=== PATIENT | female | born 1985 | race Caucasian/White ===

== ENCOUNTER 2021-02-04 07:42 | Inpatient (IN) | payer OTHER ==
[2021-02-04] MEDS ORDERED: Oxytocin/Normal Saline 30 UNIT/500 ML BAG IV ONE (07:50)
[2021-02-04] MEDS ORDERED: Oxytocin/Normal Saline 30 UNIT/500 ML BAG IV SCH ×2 (08:00)
[2021-02-04] MEDS ORDERED: ePHEDrine 50 MG/ML SDV IVPUSH PRN (08:00)
[2021-02-04] MEDS ORDERED: Acetaminophen 325 MG Tab PO PRN ×2 (08:00)
[2021-02-04] MEDS ORDERED: Misoprostol 400 MCG (4 X 100 MCG TAB) RECTAL PRN (08:00)
[2021-02-04] MEDS ORDERED: Ondansetron 4 MG/2 ML SDV IVPUSH PRN ×2 (08:00)
[2021-02-04] MEDS ORDERED: Tranexamic Acid 1,000 MG in Sodium Chloride 0.9% 100 ML IV PRN (08:00)
[2021-02-04] MEDS ORDERED: Misoprostol 50 MCG (1/2 of 100 MCG) Tab VAG PRN ×2 (08:00→13:15)
[2021-02-04] MEDS ORDERED: Promethazine 25 MG/ML SDV IM PRN (08:00)
[2021-02-04] MEDS ORDERED: Lidocaine 1% 30 ML SDV INJECT PRN (08:00)
[2021-02-04] MEDS ORDERED: Lactated Ringers 1,000 ML IV ONE (08:00)
[2021-02-04] MEDS ORDERED: Methylergonovine 0.2 MG/1 ML Amp IM PRN (08:00)
[2021-02-04] MEDS ORDERED: Naloxone 2 MG/2 ML Syringe IVPUSH PRN (08:00)
[2021-02-04] MEDS ORDERED: Sodium Chloride 0.9% 10 ML Syringe FLUSH PRN (08:00)
[2021-02-04] MEDS ORDERED: Carboprost Tromethamine 250 MCG/1 ML Amp IM PRN (08:00)
[2021-02-04] MEDS ORDERED: Lactated Ringers 1,000 ML IV SCH (14:20)
[2021-02-04] MEDS ORDERED: hydrOXYzine HCl 25 MG Tab PO PRN (15:40)
[2021-02-04] MEDS: VALACYCLOVIR 500 MG PO SCH (21:06)
[2021-02-05] MEDS: Lactated Ringers 1,000 ML IV SCH ×3 (00:50→19:50)
[2021-02-05] MEDS: Levothyroxine 88 MCG Tab PO SCH (06:25)
--- NOTE | 2021-02-05 09:46 | PN ---
DATE: 02/04/2021 SUBJECTIVE: A 35-year-old 1, para 0, currently at 39-3/7 weeks' gestation, being induced for advanced maternal age and an IVF , had 1 dose of Cytotec 50 mcg approximately 12 hours ago and unfortunately developed tachy systole of the uterus and was having tripling of her contractions and is still smita about every minute and a half to 2 minutes on the monitor, although she only reports some of that as strong as menstrual cramps. Despite rest, giving her a liter of IV fluids and a dose of Vistaril, and letting her sit in the tub, they have not spaced out sufficiently to continue with repeat doses of Cytotec at this time, and low doses of Pitocin are being considered. OBJECTIVE: Vital signs have remained stable. She is afebrile and non- hypertensive. heart tones are currently tracing 145 beats per minute. Moderate rdgb-[id number] variability. Accelerations are noted, no decelerations. [place] shows contractions every minute and a half with occasional pauses. PROCEDURE NOTE: Discussed with the patient and her use of a Saenz bulb catheter to help with cervical dilatation. The patient was properly prepared and laid in dorsal lithotomy position in the [facility]. A speculum was placed and the cervix cleaned with Betadine. A Saenz catheter was then introduced through the cervix using a ring forceps and then the Saenz bulb inflated with 30 mL of sterile saline and taped to the patient's leg to provide some traction. The procedure was performed without complication, no bleeding, no artificial rupture of membranes, and the baby has tolerated the procedure well. ASSESSMENT: 1. A 39-3/7 weeks' gestation. 2. 1, para 0. 3. resulting from intrauterine fertilization. 4. Advanced maternal age. 5. Maternal history of coronavirus disease infection. 6. Maternal history of herpes genitalis, currently on Valtrex prophylaxis and does not have any active lesions. PLAN: Continue to apply some traction to the Saenz bulb and hopefully get her to at least 2 to 3 cm dilated with that. We will also likely use low-dose Pitocin for further cervical ripening so that we could proceed with induction efforts and hopefully get her delivered vaginally. The patient does understand that delivery by section may become necessary if she or the baby start to have any compromising factors. As long as the bag of water is intact and the patient is doing well, there would be the potential to send her home undelivered, but that does have some risk given her age and IVF status. Her questions were answered, and hopefully, she will get some rest at this time. [facility] /[id number] ALEX
[2021-02-05] MEDS: VALACYCLOVIR 500 MG PO SCH ×2 (10:18→20:58)
--- NOTE | 2021-02-05 10:57 | PN ---
DATE: 02/05/2021 Subjective: Induction of labor is progressing. Pitocin rate at 8. AROM performed. She is feeling more pressure in the pelvic region and contractions are increasing in intensity. She is comfortable. Objective: VSS, afebrile General: Alert, no acute distress FHT: Category 1, baseline at 140s, accelerations present, decelerations absent, moderate variability TOCO: Irregular contractions every 2.5-3 minutes Procedures performed: AROM Clear fluid, no mec staining, was visualized. Approximately 200 mL Assessment and Plan: Patient is a 35 year old female 39 5/7 weeks gestation presenting for induction of labor. Continue increasing pitocin drip per protocol Will recheck cervical exam in 4 hours or sooner if indicated Continue current cares KD Duran 1331 MODL /[id number] Patient seen and examined. Procedure performed under my direct supervision. Agree with note as written on my behalf by YVONNE Duran. -[facility] 02/12/2021 0751. ALEX
[2021-02-05] MEDS ORDERED: Nalbuphine 10 MG/1 ML Vial IM ONE ×2 (19:21→23:11)
[2021-02-05] MEDS ORDERED: Water For Injection, Sterile 20 ML ONE (19:44)
[2021-02-05] MEDS ORDERED: Gentamicin Pediatric 10 MG/ML 2 ML SDV IV SCH (19:45)
[2021-02-05] MEDS: Ampicillin 2 GM Vial IVPUSH SCH (19:49)
[2021-02-05] MEDS: GENTAMICIN IV SCH (20:01)
[2021-02-05] MEDS: SODIUM CHLORIDE 0.9% IV SCH (20:01)
--- NOTE | 2021-02-05 21:45 | PN ---
DATE: 02/05/2021 SUBJECTIVE: Felisha Gauthier is a 35-year-old female at 39 weeks 5 days' gestation who presented yesterday for an induction of labor. 50 mg of Cytotec was given yesterday morning, her cervix was largely unchanged, but uterus was smita frequently, almost every 1 to 2 minutes. Cytotec was held due to tachysystole. At this time, it was determined to place a Saenz catheter, which was placed through the external and internal cervical os and inflated with 30 mL of normal saline. Slight pressure was placed against the internal os. At this time, the patient became very nauseated and felt in pain, and she did vomit. The catheter fell out at around 3 a.m. and the cervical check at this time found dilated cervix at 3 cm, 50% effaced, -4 station. Since then, she has been doing well. She denies current nausea, vomiting, fever, chills, chest pain, shortness of breath. She is currently on Pitocin at a rate of 8, and she is feeling contractions greater in intensity. OBJECTIVE: Vital Signs: T 97.5 F, P 68, BP 112/74, RR 14. General: In no acute distress, normal appearing. Heart: Regular rate and rhythm. No murmur heard. [place]pir[place]: CTA bilaterally. Abdomen: Gravid uterus. FHT: heart tones, a category 1 strip. Baseline at 130s with moderate variability. Accelerations present, decelerations absent. [place]: Irregular contractions every 1 to 2 minutes, tripling of contractions is present. Cervical: Cervix dilated at 3 cm, 50% effaced, station -2, head applied to cervix after artificial rupture of membranes. PROCEDURE PERFORMED: Artificial rupture of membranes. Upon cervical exam, it was determined that she was 3 cm dilated. The bag of water was palpated and head well applied to cervix. The device was ascended with a hook protected at the glove. Once at head and bag of water, the [place] was rotated and applied to bag of water. There was not a gush of fluid, no mec- stained fluid present. The patient felt slight increase in abdominal cramping at this time. Refer to cervical exam above for cervical exam after artificial rupture of membranes. ASSESSMENT AND PLAN: Felisha Gauthier is a 35-year-old female, G4, P0-0-3-0, at 39 weeks 5 days' gestation who presents for induction of labor. 1. High-risk in third trimester. 2. Advanced maternal age. 3. Maternal anemia in in third trimester. 4. Coronavirus disease 2019 affecting in third trimester. 5. Hypothyroidism in , treated with levothyroxine 88. 6. History of herpes genitalia. Taking Valtrex b.i.d. No active lesions. 7. Blood type O positive. 8. Rubella immune. 9. GBS negative. We will continue increasing Pitocin per protocol. We will continue to manage progress of labor and plan to recheck cervical exam in 3 hours. The patient verbalized understanding and is in agreement with plan. KD Duran MOD /[id number] Patient seen and examined. procedure performed under my direct supervision. Agree with note as written on my behalf by YVONNE Duran. -[facility] 02/12/2021 0758. MTDD
--- NOTE | 2021-02-05 21:54 | PN ---
DATE: 02/05/2021 SUBJECTIVE: The patient is in active labor. She reports that the pelvic pressure and contractions are increasing in intensity. She has no other somatic complaints at this time. She has continued to leak clear fluid after AROM. OBJECTIVE: General: Alert, no concerning distress. Pelvic: Cervix dilated at 4 cm, 50% effaced. FHT: Category 1, baseline 140s, moderate variability with accelerations, no decelerations. [place]: Clarice every 1 to 2 minutes. IMPRESSIONS/PLAN: The patient is a 35-year-old female at 39 weeks and 5/7 days' gestation, here for induction of labor. We will continue to increase Pitocin which is currently at a rate of 9. If no cervical change in 2 hours, the plan will be to place an IUPC and titrate Pitocin per protocol. We will recheck in 2 hours or sooner if needed. Danielle Blackman, ESTEFANYII [facility] /[id number] Patient see and agree withnote as written on my behalf by Danielle Blackman MS3. -[employer]inator [employer] 02/12/2021 0759. MTDD
--- NOTE | 2021-02-05 22:07 | PN ---
DATE: 02/05/2021 SUBJECTIVE: The patient reports increased chills and feeling hot. She reports her cheeks are flushed and she feels very cold. The pain is increasing with her contractions. She reports increased pressure down in the pelvic region. Requests Nubain at this time. OBJECTIVE: Current Vital Signs: T 101.5 F, P 67, BP 110/81, RR 12. General: Alert, in acute distress due to chills and appearance of febrile illness. FHT: Category 2 FHT, baseline 170s with minimal variability, accelerations are present, decelerations absent. [place]: Inconsistent contractions every 1 to 2 minutes. IMPRESSION/PLAN: Felisha Gauthier is a 35-year-old female at 39 weeks 5 days gestation, on day #2 of induction of labor. Physical exam reveals possible chorioamnionitis. Rupture of membranes was present at 1300 today, which was around 6-1/2 hours ago. We will start ampicillin and gentamicin per protocol. Gave Nubain 20 mg IM and is starting a liter fluid bolus at this time. We will continue to monitor for increasing signs of distress and/or sepsis. We will continue to manage labor by titrating Pitocin per protocol. ESTEFANY DuranII [facility] /[id number] Verbal report received and I agree with note as written on my behalf by Danielle Blackman MS3. -casing mixer 02/12/2021 0800 MTDMandie
[2021-02-05] MEDS ORDERED: fentaNYL 100 MCG/2 ML SDV IVPUSH ONE (23:22)
[2021-02-06] MEDS ORDERED: fentaNYL 100 MCG/2 ML SDV ONE (00:18)
[2021-02-06] MEDS ORDERED: EPINEPHrine 1 MG/1 ML Amp ONE (00:18)
[2021-02-06] MEDS ORDERED: Sodium Bicarbonate 4.2% 2.5 MEQ/5 ML SDV ONE (00:19)
[2021-02-06] MEDS ORDERED: Citric Acid/Sodium Citrate Solution 30 ML Cup PO ONE (00:35)
[2021-02-06] MEDS ORDERED: Oxytocin/Normal Saline 60 UNIT/1,000 ML BAG ONE (00:58)
[2021-02-06] MEDS: Lactated Ringers 1,000 ML IV SCH ×4 (01:00→17:49)
[2021-02-06] MEDS ORDERED: Morphine PF 1 MG/ML Amp ITHECAL ONE (01:00)
[2021-02-06] MEDS ORDERED: Lactated Ringers 1,000 ML IV ONE (01:00)
[2021-02-06] MEDS ORDERED: Ondansetron 4 MG/2 ML SDV IV ONE (01:15)
[2021-02-06] MEDS ORDERED: ePHEDrine 50 MG/ML SDV IV ONE ×3 (01:15→01:30)
[2021-02-06] MEDS ORDERED: Dexamethasone 4 MG/ML SDV IV ONE (01:30)
[2021-02-06] MEDS ORDERED: Ketorolac 30 MG/ML SDV IVPUSH ONE (02:00)
[2021-02-06] MEDS ORDERED: Docusate Sodium 100 MG Cap PO PRN (02:39)
[2021-02-06] MEDS ORDERED: diphenhydrAMINE 50 MG/ML SDV IVPUSH PRN (02:39)
[2021-02-06] MEDS: Ampicillin 2 GM Vial IVPUSH SCH ×4 (03:39→21:28)
--- NOTE | 2021-02-06 04:43 | OR ---
DATE: 02/06/2021 PREPROCEDURE DIAGNOSES: 1. 39 and 5/7 weeks' intrauterine based on 0-ppoc-9-day ultrasound. 2. 4, para 0-0-3-0. 3. intolerance of labor. 4. In vitro fertilization with embryo transfer. 5. Advanced maternal age. 6. Hypothyroidism. 7. History of COVID infection in August 2020. 8. Herpes simplex virus, no active lesions, currently on prophylaxis. 9. Anemia of . 10. 4, para 0-0-3-0. 11.Blood type O positive, rubella immune, and group B Streptococcus negative. 12. Triple I (chorioamnionitis). POSTPROCEDURE DIAGNOSES: 1. 39 and 5/7 weeks' intrauterine based on 7-wgod-8-day ultrasound. 2. 4, para 1-0-3-1. 3. intolerance of labor. 4. In vitro fertilization with embryo transfer. 5. Advanced maternal age. 6. Hypothyroidism. 7. History of COVID infection in August 2020. 8. Herpes simplex virus, no active lesions, currently on prophylaxis. 9. Anemia of . 10.Blood type O positive, rubella immune, and group B Streptococcus negative. 11.Delivery of viable male . 12.Presentation asynclitic. 13. Triple I (chorioamnionitis). PROCEDURE PERFORMED: Primary low-transverse section. TRY OUT PERSON: Dr. Nissa Cloud. SECOND FINE ARTS PACKER: Danielle Blackman, MS-3. CONSENT: Discussed with the patient and her indications risks, benefits, and alternatives of primary low transverse section in order to deliver the baby safely due to intolerance of labor. Discussed with them potential for blood transfusion, as well as its inherent risk of injury to any internal organs or adjacent structures including but not limited to large blood vessels, nerves, veins, fallopian tubes, ovaries, uterus, intestines, bladder, any other adjacent structures, and that those would be repaired as able. However, there may be complications for mother and/or baby that would require transfer to a higher level of care, there would be remote risk of . Their questions were answered and consent form signed and in the chart. BRIEF HISTORY: A 35-year-old 4, para 0-0-3-0 with an IVF with the above-listed diagnoses, brought into the hospital at 39 weeks 4 days gestation and had 50 mcg of Cytotec placed for cervical ripening. However, developed tachy systole that lasted for 12 hours, but did not result in any cervical ripening. Therefore, she was initiated on Pitocin and that still was not producing much of a change and Gonzalez bulb was used to get the cervix to dilate to about 3 cm. After that, as well as continuing on the Pitocin, artificial rupture of membranes was performed, and she eventually made it to about 4 cm before IUPC needed to be placed to monitor for uterine contraction strength. She got to 5 cm dilated, 90% effaced, but developed recurrent variables that improved but did not resolve with amnioinfusion, and baby had good variability. When sitting her up for an intrathecal, the baby had significant decelerations down into the 60s that were taking several minutes to recover despite resuscitative efforts and stat section called for. While we were awaiting the crew and there was another emergency with a different patient on the obstetrical unit, baby did manage to recover with heart tones in the 120s as long as the mother was kept on her side. Therefore, there actually was a delay getting down to the operating room, but baby was doing well and recovering at that time. Mother's labor course was also complicated by a fever with a T-max of a 102.2. tachycardia in the 170s. No foul-smelling drainage or discharge, and she was diagnosed with triple I, i.e., chorioamnionitis at this time favoring more due to inflammation than infection. DETAILS OF PROCEDURE: The patient was brought to the operating room. A Gonzalez indwelling catheter had already been placed on the obstetrical unit. She had a spinal placed in side-lying position and then was turned on her back and prepped with Betadine. Sterile drapes then applied. She was tested and Pfannenstiel skin incision was made at 1:22 and carried down to the underlying fascia using cautery, fascia incised in the midline with cautery and extended bilaterally using finger traction. Superior fascia was retracted and rectus muscles dissected off bluntly. Inferior fascial edge treated in similar fashion. Peritoneal layer entered with blunt finger dissection and traction. Marcus O retractor was then placed and appropriate location for low-transverse uterine incision made with scalpel at 1:25, and baby delivered within that same minute, had automatically noted to be asynclitic. Baby's nose and mouth were bulb suctioned as he was being dried and stimulated. Thin three-vessel umbilical cord was noted to be draped around the shoulders and neck, and then this cord was doubly clamped, cut, and baby taken to the warmer for further evaluation. Cord blood sample was then obtained and placenta was delivered initially by gentle cord traction and concomitant uterine massage, but ultimately some additional manual removal and in a couple of different fragments. Inspected, overall it appeared intact. The uterine cavity was cleared of all clots and debris using a dry lap sponge x2. Hysterotomy site was then closed with a running lock stitch of 0 Vicryl in the usual fashion. A second imbricating layer was used with good hemostasis. The Marcus retractor was removed and uterus exteriorized. Normal-appearing uterus, fallopian tubes, and ovaries. Uterus then placed back in the abdominal cavity and pericolic gutters cleared of all clots and debris. Hemostasis of the hysterotomy site was verified and peritoneal layer closed with a running stitch of 0 Vicryl. The next layer was then irrigated and fascia closed with a running stitch of 0 looped PDS. Subcutaneous tissues irrigated, cleared of any clots and debris and skin closed with 4-0 Monocryl subcuticular stitch and reinforced with Steri-Strips and Mastisol. The patient tolerated the procedure well. Baby was delivered at 1:25. FINDINGS: Viable male , score 8 and 9, weight and length measurements currently pending. He was noted to have significant asynclitic presentation with the caput forming on the posterior left parietal lobe. Nuchal cord draped over shoulders. Clear fluid and no sign of infection. ESTIMATED BLOOD LOSS: 800 mL. GONZALEZ: 675 mL, dark yellow. IV FLUIDS: 1000 mL crystalloids. 300 mL Pitocin. COMPLICATIONS: None. DISPOSITION: Mother to go to the PACU, baby to come down to the nursery. [facility] /[id number] [facility]ITAL[facility]ie
[2021-02-06] MEDS: Levothyroxine 88 MCG Tab PO SCH ×2 (06:24→08:00)
[2021-02-06] MEDS: Ferrous Sulfate 325 MG Tab PO SCH ×2 (08:09→20:13)
[2021-02-06] MEDS: Prenatal Multivitamin with Calcium/Folic Acid/Iron Tab PO SCH (08:09)
[2021-02-06] MEDS: Simethicone 80 MG Tab.Chew PO SCH ×4 (08:10→20:13)
[2021-02-06] MEDS: Ketorolac 30 MG/ML SDV IVPUSH SCH ×4 (08:10→20:13)
[2021-02-06] MEDS ORDERED: Ferrous Sulfate 325 MG Tab PO SCH (09:00)
[2021-02-06] MEDS ORDERED: Water For Injection, Sterile 20 ML ONE ×2 (09:31→15:11)
[2021-02-06] MEDS: SODIUM CHLORIDE 0.9% IV SCH (20:32)
[2021-02-06] MEDS: GENTAMICIN IV SCH (20:32)
[2021-02-07] MEDS: Acetaminophen/oxyCODONE 325-5 MG Tab PO PRN ×5 (00:56→20:05)
[2021-02-07] MEDS: Ampicillin 2 GM Vial IVPUSH SCH ×5 (02:51→20:50)
--- NOTE | 2021-02-07 03:19 | PN ---
DATE: 02/04/2021 SUBJECTIVE: The patient presented for induction of labor on 02/04/2021 at 39 weeks 4/7 days' gestation. Cytotec 50 mcg was placed at 9:15 this morning. On toco, uterus was found to be in tachysystole with greater than 6 contractions over 10 minutes. The patient has no contraction pain. She has slight tenderness in the upper rib area which has been constant throughout the third trimester of . She denies any nausea, vomiting, chest pain, shortness of breath. She is able to ambulate to the bathroom comfortably. OBJECTIVE: Vital Signs: T 98.2 F, P 64, BP 95/62, RR 18. General: Alert, no concerning distress. FHT: Category 1 strep, baseline at 140s with moderate variability. Positive for accelerations, negative for decelerations. [place]: Clarice regularly almost every minute. Pelvic: Cervix dilated, closed/fingertip, 50% effacement, -2. Extremities: Nontender, no concerning edema. IMPRESSION/PLAN: Felisha Gauthier is a 35-year-old female at G4, P 0-0-3-0, at 39 weeks 4/7 days' gestation, presenting for induction of labor. 1. Maternal well-being: The patient is comfortable. We will try relaxation in the tub. Afterwards, may consider using hydroxyzine and encourage rest. 2. well-being: heart rate category 1. 3. GBS status negative. 4. Pain management: We will continue to monitor, the patient denies any pain currently: 5. We will continue home medication, levothyroxine 88 daily and valacyclovir 500 b.i.d. KD Duran [facility] /[id number] Verbal update received and agree with note written on my behalf by Danielle Blackman MS3. -[facility] 0801. ALEX
[2021-02-07] MEDS: Ibuprofen 800 MG Tab PO PRN ×3 (04:53→13:21)
[2021-02-07] MEDS: Levothyroxine 88 MCG Tab PO SCH ×2 (04:54→06:13)
--- NOTE | 2021-02-07 09:56 | PN ---
DATE: 02/07/2021 SUBJECTIVE: The patient is postop day #1 following a primary low-transverse section. She complains of a mild headache rated a 2/10. She reports that she usually drinks 1 cup of coffee a day, and she has not had any caffeine during her stay. She denies fevers, chills, nausea, vomiting, chest pain, shortness of breath. She had Saenz removed and is ambulating and voiding. She is tolerating p.o. [place] appropriate. Her pain is mild and being controlled. OBJECTIVE: Vital Signs: T 97.8 F, BP 91/52, P 66, RR 18. General: Alert, no acute distress, appropriate affect. Abdomen: Soft, appropriately tender, fundus firm 2 fingerbreadths below umbilicus. Heart: Regular rate and rhythm. No murmur heard. Lungs: CTA bilaterally. Skin: Incision: Steri-Strips intact, no erythema, appropriate serosanguineous draining. Extremities: Nontender, trace edema. LABORATORY DATA: WBC 27.5, RBC 3.09, HGB 9.9, HCT 29.7, platelet count 228, relative neutrophil percent 88.9. ASSESSMENT: Felisha Gauthier is a G4, now para 1-0-3-1, postop day #1 following a primary low transverse section. 1. Post 39 and 5/7 weeks intrauterine based on 9 weeks 1 day ultrasound. 2. 4, now para 1-0-3-1. 3. intolerance of labor. 4. In vitro fertilization with embryo transfer. 5. Advanced maternal age. 6. Hypothyroidism. 7. History of coronavirus disease infection in August 2020. 8. Herpes simplex virus history, no active lesions, currently on prophylaxis. 9. Anemia of . 10.Blood type O positive, rubella immune, GBS negative. 11.Delivery of viable male infant. 12.Presentation asynclitic. 13. Chorioamnionitis PLAN: 1. Maternal well-being: Meeting milestones. Continue increasing activity as tolerated. Encourage showering today. Continue home medications including Synthroid and Valtrex. We will continue gentamicin and ampicillin during hospital stay. Plan for discharge home on oral antibiotics. 2. [place] well-being: Baby at bedside, exclusively . 3. Disposition: Routine cares. Advance activity. Discharged home day #2 if doing well. ESTEFANY DuranII MODL /[id number] Patient seen and examined. Agree with note as written on my behalf by Danielle Blackman MS3. -precision assembler bench 02/12/2021 0803 MTDD
[2021-02-07] MEDS: VALACYCLOVIR HCL 500 MG PO SCH ×3 (10:49→20:06)
[2021-02-07] MEDS: Simethicone 80 MG Tab.Chew PO SCH ×4 (11:04→20:04)
[2021-02-07] MEDS: Ferrous Sulfate 325 MG Tab PO SCH ×2 (11:04→20:04)
[2021-02-07] MEDS: Prenatal Multivitamin with Calcium/Folic Acid/Iron Tab PO SCH (11:05)
[2021-02-07] MEDS: GENTAMICIN IV SCH (20:06)
[2021-02-07] MEDS: SODIUM CHLORIDE 0.9% IV SCH (20:06)
[2021-02-07] MEDS ORDERED: Water For Injection, Sterile 20 ML ONE (20:34)
[2021-02-08] MEDS: Ibuprofen 800 MG Tab PO PRN ×2 (01:24→09:04)
[2021-02-08] MEDS: Acetaminophen/oxyCODONE 325-5 MG Tab PO PRN ×2 (01:24→09:03)
[2021-02-08] MEDS: Ampicillin 2 GM Vial IVPUSH SCH ×2 (03:00→12:30)
[2021-02-08] MEDS ORDERED: Water For Injection, Sterile 20 ML ONE (04:01)
[2021-02-08] MEDS: Levothyroxine 88 MCG Tab PO SCH (05:00)
[2021-02-08] MEDS: Prenatal Multivitamin with Calcium/Folic Acid/Iron Tab PO SCH (09:02)
[2021-02-08] MEDS: Simethicone 80 MG Tab.Chew PO SCH (09:02)
[2021-02-08] MEDS: Ferrous Sulfate 325 MG Tab PO SCH (09:03)
[2021-02-08] MEDS: VALACYCLOVIR HCL 500 MG PO SCH (09:06)
--- NOTE | 2021-02-09 03:21 | DISCH ---
ADMITTING DIAGNOSES: 1. A 39 and 3/7 weeks' intrauterine based on 9 weeks 1 day ultrasound. 2. 4, para 0-0-3-0. 3. In vitro fertilization with embryo transfer. 4. Advanced maternal age. 5. Hypothyroidism, treated with 88 mcg Synthroid. 6. History of coronavirus disease infection in August 2020. 7. Herpes simplex virus history, no active lesions, currently on Valtrex 500 mg b.i.d. 8. Anemia of in third trimester. 9. Blood type O positive, rubella immune, group B Streptococcus negative. DISCHARGE DIAGNOSES: 1. Post 39 and 5/7 weeks' intrauterine based on 9 weeks 1 day ultrasound. 4, now para 1-0-3-1. Status post primary low- transverse section under intrathecal anesthesia. 2. intolerance of labor. 3. In vitro fertilization with embryo transfer. 4. Advanced maternal age. 5. Hypothyroidism, treated with 88 mcg Synthroid. 6. History of coronavirus disease infection in August 2020. 7. Herpes simplex virus history, no active lesions, currently on Valtrex 500 mg b.i.d. 8. Anemia of in third trimester. 9. Blood type O positive, rubella immune, group B Streptococcus negative. 10.Delivery of viable male infant. 11.Presentation asynclitic. 12.Chorioamnionitis (Triple I). PROCEDURES PERFORMED: 1. Cytotec induction 50 mg. 2. Saenz catheter placement for cervical dilation, bulb filled 30 mL. 3. Intrathecal. 4. Low-transverse primary section. 5. Artificial rupture of membranes. 6. Intrauterine pressure catheter. 7. Amnioinfusion. BRIEF HISTORY: A 36-year-old female with the above-listed diagnoses, presented to the hospital for a term induction of labor due to IVF in an advanced maternal age patient. Began induction with 50 Cytotec, which resulted in uterine tachysystole. With limited cervical change, a Saenz bulb catheter was placed. Saenz catheter fell out with dilation of 3 cm of cervix. Pitocin was started per protocol. At day 2 of induction, she developed a fever, T-max 102, and intolerance of labor with tachysystole in the 170s. Monitoring with IUP was needed due to inadequate cervical change. Baby later developed variable decelerations and amnioinfusion was performed with improvement. When the patient was sat up for an intrathecal she developed prolonged deceleration of heart rate in the 60s. It was determined to proceed with an emergent primary low-transverse section. There was another simultaneous obstetrical emergency and the baby was doing well as long as the Pitocin was off and mother remained on her side. There was a delay getting to the OR due to the concurrent emergency, however this allowed the baby to recover from the prolonged deceleration and for Felisha to have spinal anesthesia administered on her side rather than performing the surgery under general anesthesia. Delivery occurred without further complication. See operative report for details. scores were 8 and 9 at the time of delivery, term male, asynclitic presentation. HOSPITAL COURSE: Has been good following delivery and starting ampicillin and gentamicin IV, fevers have resolved. Incision site has remained nonerythematous and abdominal pain is minimal. She is breast-feeding well, ambulating, and tolerating regular diet. No chest pain or shortness of breath. She remains asymptomatic for signs of infection, hemorrhage, or other complications. She is requesting discharge home today. DISCHARGE CONDITION: Good. PHYSICAL EXAMINATION: Vital Signs: T 98.5 F, P 69, BP 114/79, RR 16. General: Alert, no concerning distress. Heart: Regular rate and rhythm without murmur. Lungs: Clear to auscultation bilaterally with good chest expansion. Abdomen: Soft, nontender, fundus firm and below the umbilicus. Incision: Steri-Strips in place with mild serosanguineous drainage. Incision non-erythematic, no swelling present. Steri-strips in place. Extremities: Trace edema, no erythema or tenderness noted. LABORATORY DATA: Admission hemoglobin 12.0, discharge hemoglobin 9.7. WBC 35.3 s/p delivery, at discharge WBC 13.6. UA negative for UTI. DISPOSITION: Home with family. MEDICATIONS: [id number] Tylenol and ibuprofen as needed for pain. May use Percocet for pain as needed, 20 pills of Percocet given. Continue vitamin 1 daily. Continue iron 325 mg twice daily. Continue Valtrex and Synthroid. Discharged home with Augmentin 875 b.i.d. for 7 days. Given a prophylactic dose of Diflucan in case patient develops yeast infection. FOLLOWUP: She will be seen in 2 weeks for incision check. She will be seen in 6 weeks for routine exam. She will be screened for depression when she brings the baby back for the 2-day and 2-week well-child exam as well as needed should we see her in the office for herself or her . INSTRUCTIONS: Routine post primary low-transverse instructions and instructions for for mother were provided and all of her questions were answered. KD Duran [facility] /[id number] Patient seen and examined with YVONNE Duran. Agree with note as written on my behalf. -[facility] 02/10/2021 2225. MTDD
--- NOTE | 2021-02-12 08:04 | PCM.SN.2 ---
- Free Text/Narrative Note: See H&P scanned in from [facility]. -[facility]red[facility] worker
== END 2021-02-08 12:25 | disposition home or self-care (01) | DRG 786 ==
LOC: DL.OBCHECK 07:42 → DL.OB 07:49 → INTOOBSV 07:49 → OBSVTOIN 02-06 01:25
PROVIDERS: ADMIT Family Medicine; ATTEND Family Medicine
PROC: 10D00Z1 Extraction of Products of Conception, Low, Open Approach (ICD-10-PCS; principal; 2021-02-06)
DX: O76 Abnormality in fetal heart rate and rhythm complicating labor and delivery (principal); O41.1230 Chorioamnionitis, third trimester, not applicable or unspecified; Z3A.39 39 weeks gestation of pregnancy; Z37.0 Single live birth; O99.02 Anemia complicating childbirth; D64.9 Anemia, unspecified; Z86.16 Personal history of COVID-19; O99.284 Endocrine, nutritional and metabolic diseases complicating childbirth; E03.9 Hypothyroidism, unspecified; Z20.822 Contact with and (suspected) exposure to COVID-19
CPT/HCPCS: 01961; 36415; 51702; 81001; 85025; 85027; 86850; 86900; 86901; 86920; 86922; 94010; A9270-GY; J0290; J1100; J1580; J1885; J2274; J2300; J2405; J2590; J3010; J7120; U0002

== ENCOUNTER 2023-09-20 09:44 | Inpatient (IN) | payer OTHER ==
[2023-09-20] MEDS ORDERED: Carboprost Tromethamine 250 MCG/1 ML Amp IM PRN ×2 (10:34→17:46)
[2023-09-20] MEDS ORDERED: Citric Acid/Sodium Citrate Solution 30 ML Cup PO ONE (10:34)
[2023-09-20] MEDS ORDERED: Sodium Chloride 0.9% 10 ML Syringe FLUSH PRN (10:34)
[2023-09-20] MEDS ORDERED: ceFAZolin 2 GM Vial IVPUSH ONE (10:34)
[2023-09-20] MEDS ORDERED: Tranexamic Acid 1,000 MG in Sodium Chloride 0.9% 100 ML IV PRN ×2 (10:34→17:46)
[2023-09-20] MEDS ORDERED: Oxytocin 10 Units/1 ML SDV IM PRN (10:34)
[2023-09-20] MEDS ORDERED: Methylergonovine 0.2 MG Tab PO PRN (10:34)
[2023-09-20] MEDS: Lactated Ringers 1,000 ML IV SCH ×4 (10:35→17:27)
[2023-09-20 10:43] LABS: BASOPHILS PERCENT AUTO 0.1 % (0.0-1.0); EOSINOPHILS PERCENT AUTO 0.5 % (1.0-3.0); HEMATOCRIT 33.7 % (37.0-47.0); HEMOGLOBIN 11.6 g/dL (12.0-16.0); LYMPHOCYTES PERCENT AUTO 22.7 % (20.5-50.1); MEAN CORPUSCULAR HEMOGLOBIN 31.5 pg (27.0-34.0); MEAN CORPUSCULAR HGB CONC 34.4 g/dL (33.0-35.0); MEAN CORPUSCULAR VOLUME 91.6 fL (80-100); NEUTROPHILS PERCENT AUTO 71.7 % (42.2-75.2); PLATELET COUNT,PLT 211 10^3/uL (150-450); RED BLOOD CELL COUNT 3.68 10^6/uL (4.2-5.4); WHITE BLOOD CELL COUNT,WBC 8.1 10^3/uL (5.0-10.0)
[2023-09-20] MEDS ORDERED: Oxytocin/Normal Saline 30 UNIT/500 ML BAG IV SCH (10:45)
[2023-09-20] MEDS ORDERED: Lactated Ringers 1,000 ML IV SCH ×2 (10:45→18:00)
[2023-09-20] MEDS ORDERED: Oxytocin/Normal Saline 30 UNIT/500 ML BAG ONE (10:53)
[2023-09-20] MEDS ORDERED: ceFAZolin 2 GM Vial ONE (11:07)
[2023-09-20] MEDS ORDERED: Ondansetron 4 MG/2 ML SDV ONE (11:07)
[2023-09-20] MEDS ORDERED: Ketorolac 30 MG/ML SDV ONE (11:07)
[2023-09-20] MEDS ORDERED: Phenylephrine 1% 10 MG/ML SDV ONE (11:08)
[2023-09-20] MEDS ORDERED: Oxytocin 10 Units/1 ML SDV ONE (11:08)
[2023-09-20] MEDS ORDERED: diphenhydrAMINE 50 MG/ML SDV ONE (12:41)
[2023-09-20] MEDS ORDERED: Naloxone 2 MG/2 ML Syringe IVPUSH PRN (17:46)
[2023-09-20] MEDS ORDERED: Ondansetron 4 MG/2 ML SDV IVPUSH PRN (17:46)
[2023-09-20] MEDS ORDERED: diphenhydrAMINE 50 MG/ML SDV IVPUSH PRN (17:46)
[2023-09-20] MEDS ORDERED: ePHEDrine 50 MG/ML SDV IVPUSH PRN (17:46)
[2023-09-20] MEDS ORDERED: Methylergonovine 0.2 MG/1 ML Amp IM PRN (17:46)
[2023-09-20] MEDS ORDERED: Acetaminophen 325 MG Tab PO PRN (17:46)
[2023-09-20] MEDS ORDERED: Misoprostol 400 MCG (4 X 100 MCG TAB) RECTAL PRN (17:46)
[2023-09-20] MEDS: Ketorolac 30 MG/ML SDV IVPUSH SCH (19:45)
[2023-09-20] MEDS: Simethicone 80 MG Tab.Chew PO SCH (19:47)
[2023-09-20] MEDS ORDERED: Sodium Chloride 0.9% 10 ML Syringe FLUSH SCH (21:00)
[2023-09-21] MEDS: Ketorolac 30 MG/ML SDV IVPUSH SCH ×2 (02:00→08:10)
[2023-09-21] MEDS: Simethicone 80 MG Tab.Chew PO SCH ×5 (02:04→21:00)
[2023-09-21 06:33] LABS: HEMATOCRIT 28.7 % (37.0-47.0); HEMOGLOBIN 9.7 g/dL (12.0-16.0); MEAN CORPUSCULAR HEMOGLOBIN 31.7 pg (27.0-34.0); MEAN CORPUSCULAR HGB CONC 33.8 g/dL (33.0-35.0); MEAN CORPUSCULAR VOLUME 93.8 fL (80-100); RED BLOOD CELL COUNT 3.06 10^6/uL (4.2-5.4); WHITE BLOOD CELL COUNT,WBC 12.2 10^3/uL (5.0-10.0)
[2023-09-21] MEDS ORDERED: Ferrous Sulfate 325 MG Tab PO SCH (08:00)
[2023-09-21] MEDS ORDERED: Prenatal Multivitamin with Calcium/Folic Acid/Iron Tab PO SCH (09:00)
[2023-09-21] MEDS: Levothyroxine 112 MCG Tab PO SCH (09:37)
[2023-09-21] MEDS: Prenatal Multivitamin with Calcium/Folic Acid/Iron Tab PO SCH (14:10)
[2023-09-21] MEDS: Ferrous Sulfate 325 MG Tab PO SCH (14:10)
[2023-09-21] MEDS: Docusate Sodium 100 MG Cap PO PRN ×2 (14:10→21:01)
[2023-09-21] MEDS: Acetaminophen/oxyCODONE 325-5 MG Tab PO PRN ×2 (14:11→21:01)
[2023-09-21] MEDS: Ibuprofen 800 MG Tab PO PRN (19:41)
[2023-09-22] MEDS: Acetaminophen/oxyCODONE 325-5 MG Tab PO PRN ×2 (02:20→06:15)
[2023-09-22] MEDS: Levothyroxine 112 MCG Tab PO SCH (06:14)
[2023-09-22] MEDS: Ibuprofen 800 MG Tab PO PRN (06:14)
[2023-09-22] MEDS: Docusate Sodium 100 MG Cap PO PRN (09:39)
[2023-09-22] MEDS: Simethicone 80 MG Tab.Chew PO SCH ×2 (09:39→12:18)
[2023-09-22] MEDS: Ferrous Sulfate 325 MG Tab PO SCH (12:19)
[2023-09-22] MEDS: Prenatal Multivitamin with Calcium/Folic Acid/Iron Tab PO SCH (12:20)
[2023-09-22] MEDS ORDERED: Phenylephrine 1% 10 MG/ML SDV IV ONE (14:30)
[2023-09-22] MEDS ORDERED: Morphine PF 10 MG/10 ML SDV IV ONE (14:30)
[2023-09-22] MEDS ORDERED: diphenhydrAMINE 50 MG/ML SDV IV ONE (14:30)
[2023-09-22] MEDS ORDERED: Dexamethasone 4 MG/ML SDV IV ONE (14:30)
[2023-09-22] MEDS ORDERED: Oxytocin 10 Units/1 ML SDV IV ONE (14:30)
[2023-09-22] MEDS ORDERED: Ketorolac 30 MG/ML SDV IVPUSH ONE (14:30)
[2023-09-22] MEDS ORDERED: Ondansetron 4 MG/2 ML SDV IV ONE (14:30)
== END 2023-09-22 14:31 | disposition home or self-care (01) | DRG 787 ==
LOC: DL.OB 09:44 → OBSVTOIN 09:44
PROVIDERS: ADMIT Family Medicine; ATTEND Family Medicine
PROC: 10D00Z1 Extraction of Products of Conception, Low, Open Approach (ICD-10-PCS; principal; 2023-09-20 12:00)
DX: O34.211 Maternal care for low transverse scar from previous cesarean delivery (principal); D62 Acute posthemorrhagic anemia; O98.32 Other infections with a predominantly sexual mode of transmission complicating childbirth; O99.284 Endocrine, nutritional and metabolic diseases complicating childbirth; E03.9 Hypothyroidism, unspecified; A60.00 Herpesviral infection of urogenital system, unspecified; O90.81 Anemia of the puerperium; Z37.0 Single live birth; Z3A.39 39 weeks gestation of pregnancy
CPT/HCPCS: 01961; 36415; 51702; 59025; 85025; 85027; 86850; 86900; 86901; A9270-GY; J1885; J2590; J7120